=== PATIENT | female | born 1995 | race Caucasian/White ===

== ENCOUNTER 2017-12-09 18:54 | Emergency (ER) | payer OTHER ==
[~2017-12-09] VITALS: Ht 154.9 cm; Wt 56.7 kg
--- NOTE | 2017-12-09 19:07 | ED GENERAL ADULT ---
History of Present Illness General Chief Complaint: Abdominal Pain/Flank Pain Stated Complaint: SENT FROM WALK IN FOR RLQ PAIN Source: patient, family Exam Limitations: no limitations Vital Signs & Intake/Output Vital Signs & Intake/Output Vital Signs Date Time Temp Pulse Resp B/P B/P Pulse O2 O2 Flow FiO2 Mean Ox Delivery Rate 12/09 2222 98.4 60 16 102/61 100 Room Air 12/09 2056 99.9 12/09 1955 Room Air 12/09 1858 99.9 70 18 103/72 98 Room Air ED Intake and Output 12/10 0000 12/09 1200 Intake Total 1000 Output Total Balance 1000 Intake, IV 1000 Patient 125 lb Weight Allergies Coded Allergies: NO KNOWN ALLERGIES (12/09/17) Triage Note: 22 YEAR OLD FEMALE TO ER WITH COMPLAINTS OF RLQ ABD PAIN THAT HAS BEEN INCREASING IN INTENSITY WITH NAUSEA SINCE THIS AM. DENIES URINARY SYMPTOMS PT WAS SEEN AT [facility] Triage Nurses Notes Reviewed? yes : No Patient currently breastfeeds: No HPI: This is an otherwise healthy 22-year-old female presenting with right lower quadrant abdominal pain which started this morning. She also has had intermittent chills and sweats. She has had no appetite all day. She has not vomited but feels nauseated. She reports one normal bowel movement earlier today. Otherwise, she is intermittently constipated at baseline. She denies any sick contacts, recent travel or suspicious foods. She denies any vaginal bleeding or discharge. Last menstrual period was 3 weeks ago. She takes oral contraceptive for control and abatement of PMS symptoms. Patient was seen in urgent care and sent here for evaluation. (Andriy Mcguire MD) Past History Travel History Traveled to [place] past 21 day No Medical History Any Pertinent Medical History? see below for history Neurological: NONE EENT: NONE Cardiovascular: NONE Respiratory: NONE Gastrointestinal: NONE Hepatic: NONE Renal: NONE Musculoskeletal: NONE Psychiatric: NONE Endocrine: NONE Blood Disorders: NONE Cancer(s): NONE CERTIFIED MEDICAL ASST/Reproductive: NONE Surgical History Surgical History: none Psychosocial History What is your primary language Upper Sorbian Tobacco Use: Never used ETOH Use: denies use Illicit Drug Use: denies illicit drug use Family History Hx Contributory? No (Andriy Mcguire MD) Review of Systems Review of Systems Constitutional: Reports: chills, diaphoresis, weakness. GI: Reports: abdominal pain, nausea. All Other Systems: Reviewed and Negative (Andriy Mcguire MD) Physical Exam Physical Exam General Appearance: well developed/nourished, no apparent distress, comfortable Comments: Well-appearing young woman, no acute distress. HEENT exam unremarkable. Neurologically intact and normal. Cardiopulmonary exam unremarkable. Abdominal exam significant for right lower quadrant tenderness to palpation with positive rebound. Negative Rovsing. Intact pulse movement sensation in all extremities. Skin is warm, pink and dry. Core Measures ACS in differential dx? No CVA/TIA Diagnosis: No Sepsis Present: No Sepsis Focused Exam Completed? No (Andriy Mcguire MD) Progress Differential Diagnoses I considered the following diagnoses in my evaluation of the patient: Concern for appendicitis, gastroenteritis. Lower suspicion for acute ovarian torsion given time course and presentation. Doubt peptic ulcer disease, pelvic inflammatory disease. Plan of Care: Orders Procedure Date/time Status Nothing by Mouth 12/10 B Active Add-on Test (ER Only) 12/09 2028 Active HUMAN BETA HCG TITRE 12/09 1946 Complete PARTIAL THROMBOPLASTIN TIME 12/09 1921 Complete PROTHROMBIN TIME 12/09 1921 Complete TYPE & SCREEN (NOT X-MATCH) 12/09 1921 Complete URINE 12/09 1905 Complete URINALYSIS 12/09 1905 Complete LIPASE 12/09 1905 Complete COMPREHENSIVE METABOLIC PANEL 12/09 1905 Complete CBC WITHOUT DIFFERENTIAL 12/09 1905 Complete Laboratory Tests 12/09/172206: Urine Color YEL, Urine Clarity CLEAR, Urine pH 6.0, Ur Specific [place] 1.010, Urine Protein NEG, Urine Ketones 40 H, Urine Nitrite NEG, Urine Bilirubin NEG, Urine Urobilinogen 0.2, Ur Leukocyte Esterase NEG, Ur Microscopic SEDIMENT EXAMINED, Urine RBC RARE, Urine WBC RARE, Ur Epithelial Cells FEW, Urine Hemoglobin TRACE-LYSED, Urine Glucose NEG, Urine Test NEGATIVE 12/09/171946: Anion Gap 12, Estimated GFR > 60, BUN/Creatinine Ratio 10.0, Glucose 94, Calcium 10.1, Total Bilirubin 0.6, AST 21, ALT 23, Alkaline Phosphatase 47, Total Protein 8.2, Albumin 4.8, Globulin 3.4, Albumin/Globulin Ratio 1.4, Lipase 256, Beta HCG, Quant < 2.4, PT 11.9, INR 1.09, APTT 26, CBC w Diff NO MAN DIFF REQ, RBC 4.54, MCV 89.5, MCH 30.3, MCHC 33.9, RDW 12.6, MPV 8.7, Gran % 53.0, Lymphocytes % 36.6, Monocytes % 6.2, Eosinophils % 3.7, Basophils % 0.5, Absolute Granulocytes 4.2, Absolute Lymphocytes 2.9, Absolute Monocytes 0.5, Absolute Eosinophils 0.3, Absolute Basophils 0 Plan for labs, nausea control, IV fluids, CAT scan abdomen pelvis with IV contrast. Pain is moderately well controlled with Tylenol. She is well-appearing on reassessment. Labs are unremarkable. Urine negative. Urinalysis unremarkable. CAT scan shows no evidence of appendicitis. Equivocal finding for possible UVJ nephrolithiasis is noted but does not correlate with patient exam. Findings discussed with patient and mother at length. Possibility of underlying ovarian pathology is also discussed at length entered specific return precautions are provided in that respect. Patient ultimately discharged home with return precautions and follow-up instructions. Initial ED EKG: none (Andriy Mcguire MD) Departure Departure Time of Disposition: 2300 Disposition: HOME OR SELF CARE Condition: Stable Clinical Impression Primary Impression: RLQ abdominal pain Referrals: Gustabo JARVIS,Mario Diaz (PCP/Family) Additional Instructions: Thank you for coming to [facility] this evening. We did not identify the cause of your pain, however it it does not appear to be acute appendicitis or other acute infection. As we discussed, it is important that you are mindful of your body and return to the hospital if symptoms worsen or you fail to improve. Please take ibuprofen, 600 mg every 6 hours or acetaminophen, 650 mg every 6-8 hours as needed for discomfort. I recommend that you drink clear fluids for the next several hours and advance your diet as you are able. Please return to the emergency department if you have worsening pain or you develop any new or worsening symptoms. As we discussed, it is important that you follow-up with your doctor this week for reassessment. Thank you, Dr. Mcguire. Departure Forms: Customer Survey General Discharge Information (Andriy Mcguire MD) Resident Co-Sign Statement Statement: ED Attending supervision documentation- [] I saw and evaluated the patient. I have also reviewed all the pertinent lab results and diagnostic results. I agree with the findings and the plan of care as documented in the Resident's documentation. [x] I have reviewed the ED Record and agree with the Resident's documentation. [] Additions or exceptions (if any) to the Resident's note and plan are summarized below: [] (Oscar JARVIS,Bella) Critical Care Note Critical Care Note Critical Care Time: non-applicable (Maynor JARVIS,Andriy)
[2017-12-09 19:56] LABS: ABSOLUTE BASOPHIL COUNT 0 /CUMM (0.0-0.2); ABSOLUTE EOSINOPHIL COUNT 0.3 /CUMM (0.0-0.7); ABSOLUTE GRANULOCYTE CT 4.2 /CUMM (1.4-6.5); ABSOLUTE LYMPH COUNT 2.9 /CUMM (1.2-3.4); ABSOLUTE MONOCYTE COUNT 0.5 /CUMM (0.10-0.60); BASOPHIL % 0.5 % (0.0-2.0); EOSINOPHIL % 3.7 % (0-5); HEMATOCRIT 40.6 % (37-47); MEAN CORPUSCULAR HGB 30.3 PG (27.0-31.0); MEAN CORPUSCULAR HGB CONC 33.9 G/DL (33.0-37.0); MEAN CORPUSCULAR VOLUME 89.5 FL (81.0-99.0); MEAN PLATELET VOLUME 8.7 FL (7.4-10.4); PLATELET COUNT 335 /CUMM (130-400); RBC DISTRIBUTION WIDTH 12.6 % (11.5-14.5); RED BLOOD CELL CT 4.54 /CUMM (4.20-5.40); WHITE BLOOD CELL COUNT 7.9 /CUMM (4.8-10.8)
[2017-12-09 20:19] LABS: PT 11.9 SEC (9.4-12.5); PTT 26 SEC (25-37)
[2017-12-09 22:23] VITALS: BP 102/61
--- NOTE | 2017-12-09 22:24 | CT SCAN REPORT ---
EXAMINATION: CT ABDOMEN AND PELVIS WITH CONTRAST CLINICAL INFORMATION: Right lower quadrant pain. Question appendicitis. COMPARISON: None TECHNIQUE: Multidetector volumetric imaging was performed of the abdomen and pelvis following IV administration of 95 mL of Optiray 320 intravenous contrast. Sagittal and coronal reformatted images were obtained on the technologist's workstation. DLP: 274 mGy-cm FINDINGS: LUNG BASES: The visualized lung bases are unremarkable. LIVER, GALLBLADDER, AND BILIARY TREE: The liver is normal in size, shape, and attenuation. No focal hepatic lesion or significant biliary ductal dilatation is present. The gallbladder is unremarkable with no evidence of radiopaque gallstones, gallbladder wall thickening, or obvious pericholecystic inflammatory changes. PANCREAS: Unremarkable. SPLEEN: Unremarkable. ADRENAL GLANDS: Unremarkable. KIDNEYS AND URETERS: Bilateral nephrograms are symmetric without hydronephrosis. No renal calculi demonstrated. There is a 0.2 cm calculus in the region of the left ureterovesicular junction, which may represent a distal ureteral calculus, bladder calculus, or possibly an adjacent pelvic phlebolith. No left hydroureter. BLADDER: As mentioned above, there is a 0.2 cm calculus along the left parasagittal posterior bladder, possibly representing a calculus at the left UVJ, a bladder calculus, or an adjacent phlebolith. GASTROINTESTINAL TRACT: Bowel gas pattern is nonobstructive. No evidence of acute bowel inflammation. The appendix measures 0.7 cm in diameter, is partially aerated, and demonstrates no adjacent inflammatory stranding. ABDOMINAL WALL: No significant hernia is appreciated. LYMPH NODES: No bulky adenopathy. VASCULAR: Unremarkable. PELVIC VISCERA: No free pelvic fluid. No suspicious uterine or adnexal lesion. OSSEOUS STRUCTURES: No acute osseous abnormalities. IMPRESSION: 1. No evidence of appendicitis. 2. A 0.2 cm calculus along the posterior left aspect of the bladder. This may represent a calculus at the left ureterovesicular junction, a tiny bladder calculus, or potentially an adjacent tiny phlebolith. No left-sided hydroureteronephrosis.
== END 2017-12-09 23:12 ==
LOC: ERH 18:54
PROVIDERS: Student in an Organized Health Care Education/Training Program
DX: R10.31 Right lower quadrant pain (principal); R68.83 Chills (without fever); R61 Generalized hyperhidrosis; R11.0 Nausea
CPT/HCPCS: 74177; 81001; 81025; 96361; 96374; 96375; J0131; J2405